=== PATIENT | male | born 1975 | race Caucasian/White ===

== ENCOUNTER 2017-10-07 00:24 | Emergency (ER) | payer BC, OTHER ==
[~2017-10-07] VITALS: Ht 177.8 cm; Wt 98.0 kg
[2017-10-07] MEDS ORDERED: KETOROLAC 30 MG/1 ML ONE (00:37)
[2017-10-07] MEDS ORDERED: HYDROcodone/APAP 5/325 TABLET ONE (00:37)
[2017-10-07 00:50] VITALS: BP 136/96
[2017-10-07] MEDS ORDERED: [UNRECOGNIZED DRUG - REMARK] MC SCH (01:00)
[2017-10-07] MEDS ORDERED: HYDROcodone/APAP 5/325 TABLET PO ONE (01:00)
[2017-10-07] MEDS ORDERED: KETOROLAC 30 MG/1 ML IM ONE (01:00)
== END 2017-10-07 01:33 | disposition home or self-care (01) ==
LOC: ED 01:05
DX: G89.29 Other chronic pain (principal); M25.511 Pain in right shoulder; M25.561 Pain in right knee; I48.91 Unspecified atrial fibrillation; Z88.0 Allergy status to penicillin
CPT/HCPCS: 99283

== ENCOUNTER 2019-12-18 14:29 | Emergency (ER) | payer SELFPAY ==
[~2019-12-18] VITALS: Ht 193 cm; Wt 98.6 kg
[2019-12-18 14:40] VITALS: BP 129/96
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
--- NOTE | 2019-12-18 15:40 | NUR ---
Pt not wanting to get into gown. Pt refusing pt reporting he would like to leave. Per it is okay for patient to not be in gown until evaled by [facility].
[2019-12-18 16:05] LABS: ALANINE AMINOTRANSFERASE 29 U/L (12-78); ALBUMIN 3.6 g/dL (3.4-5.0); ANION GAP 10 mmol/L (5-15); CALCIUM 8.6 mg/dL (8.5-10.1); CHLORIDE 112 mmol/L (98-107); SALICYLATE LEVEL 3.4 mg/dL (2.8-20.0)
[2019-12-18 16:07] LABS: BASOPHILS # (AUTO) 0.05 x10^3/uL (0-0.1); BASOPHILS % (AUTO) 1 % (0-1); EOSINOPHILS # (AUTO) 0.12 x10^3/uL (0-0.4); EOSINOPHILS % (AUTO) 2 % (1-7); LYMPHOCYTES # (AUTO) 2.78 x10^3/uL (1-3.4); LYMPHOCYTES % (AUTO) 38 % (22-44); MD NO; MEAN CORPUSCULAR HEMOGLOBIN 32.1 pg (27.5-34.5); MEAN CORPUSCULAR VOLUME 94.6 fL (81-97); MONOCYTES # (AUTO) 0.51 x10^3/uL (0.2-0.8); MONOCYTES % (AUTO) 7 % (2-9); NEUTROPHILS # (AUTO) 3.83 x10^3/uL (1.8-6.8); NEUTROPHILS % (AUTO) 52 % (42-75); PLATELET COUNT 261 x10^3/uL (130-400); RED BLOOD COUNT 5.19 x10^6/uL (4.38-5.82); RED CELL DISTRIBUTION WIDTH 13.7 % (9.4-14.8)
[2019-12-18 16:08] LABS: ALKALINE PHOSPHATASE 80 U/L (45-117); BILIRUBIN,TOTAL 0.6 mg/dL (0.2-1.0); TOTAL PROTEIN 7.4 g/dL (6.4-8.2)
[2019-12-18 16:34] LABS: AMPHETAMINE SCREEN, URINE Negative (Negative); BARBITURATE SCREEN, URINE Negative (Negative); BENZODIAZEPINE SCREEN, URINE Negative (Negative); CANNABINOID SCREEN, URINE Negative (Negative); COCAINE SCREEN, URINE Negative (Negative); METHADONE SCREEN, URINE Negative (Negative); OPIATE SCREEN, URINE Negative (Negative)
--- NOTE | 2019-12-18 17:07 | NUR ---
Patient/Caregiver given discharge instructions and they have confirmed that they understand the instructions. Patient ambulatory with steady gait. pT GOING WITH FATHER TO WELL CARE.
== END 2019-12-18 17:09 | disposition home or self-care (01) ==
LOC: ED 16:23
DX: F32.9 Major depressive disorder, single episode, unspecified (principal); F10.20 Alcohol dependence, uncomplicated; I48.91 Unspecified atrial fibrillation; E87.0 Hyperosmolality and hypernatremia; Z88.0 Allergy status to penicillin; Y90.9 Presence of alcohol in blood, level not specified
CPT/HCPCS: 36415; 80053; 80307; 85025; 99283

== ENCOUNTER 2020-05-13 19:27 | Emergency (ER) | payer SELFPAY ==
[~2020-05-13] VITALS: Ht 198.1 cm; Wt 112.3 kg
[2020-05-13 19:38] VITALS: BP 130/88
--- NOTE | 2020-05-13 19:53 | NUR ---
Pt back to room
[2020-05-13] MEDS ORDERED: LORazepam 2 MG/ML, 1ML ONE (20:15)
[2020-05-13 20:29] LABS: BASOPHILS # (AUTO) 0.05 x10^3/uL (0-0.1); BASOPHILS % (AUTO) 1 % (0-1); EOSINOPHILS # (AUTO) 0.09 x10^3/uL (0-0.4); EOSINOPHILS % (AUTO) 1 % (1-7); LYMPHOCYTES # (AUTO) 3.54 x10^3/uL (1-3.4); LYMPHOCYTES % (AUTO) 36 % (22-44); MD NO; MEAN CORPUSCULAR HEMOGLOBIN 33.2 pg (27.5-34.5); MEAN CORPUSCULAR HGB CONC 34.4 g/dL (33.2-36.2); MEAN CORPUSCULAR VOLUME 96.6 fL (81-97); MEAN PLATELET VOLUME 8.5 fL (7.4-10.4); MONOCYTES # (AUTO) 0.63 x10^3/uL (0.2-0.8); MONOCYTES % (AUTO) 6 % (2-9); NEUTROPHILS # (AUTO) 5.61 x10^3/uL (1.8-6.8); NEUTROPHILS % (AUTO) 57 % (42-75); PLATELET COUNT 337 x10^3/uL (130-400); RED BLOOD COUNT 4.87 x10^6/uL (4.38-5.82); RED CELL DISTRIBUTION WIDTH 14.7 % (9.4-14.8)
[2020-05-13] MEDS ORDERED: LORazepam 2 MG/ML, 1ML IVPush ONE (20:30)
[2020-05-13 20:41] LABS: ALANINE AMINOTRANSFERASE 40 U/L (12-78); ALBUMIN 3.9 g/dL (3.4-5.0); ANION GAP 9 mmol/L (5-15); CALCIUM 8.6 mg/dL (8.5-10.1); CHLORIDE 115 mmol/L (98-107); CREATININE 1.05 mg/dL (0.7-1.3)
[2020-05-13 20:42] LABS: SALICYLATE LEVEL < 1.7 mg/dL (2.8-20.0)
[2020-05-13 20:43] LABS: ALKALINE PHOSPHATASE 68 U/L (45-117); BILIRUBIN,TOTAL 0.4 mg/dL (0.2-1.0); TOTAL PROTEIN 7.9 g/dL (6.4-8.2)
[2020-05-13] MEDS ORDERED: SODIUM CHLORIDE 0.9% 1,000ML IVBOLUS ONE (21:00)
--- NOTE | 2020-05-13 21:24 | NUR ---
PT WAS RECIEVING IV FLUIDS AND MEDICATIONS. WENT TO CHECK ON PT AND HE SAID " I NEED TO FUCKING GET OUT OF HERE. YOU GUYS ARENT DOING SHIT FOR ME. I HATE IT"
== END 2020-05-13 21:26 | disposition home or self-care (01) ==
LOC: ED 21:20
DX: F10.229 Alcohol dependence with intoxication, unspecified (principal); I48.91 Unspecified atrial fibrillation; M19.90 Unspecified osteoarthritis, unspecified site; Y90.9 Presence of alcohol in blood, level not specified
CPT/HCPCS: 36415; 80053; 80307; 85025; 96374; 99283; J2060